=== PATIENT | male | born 1970 | race Caucasian/White ===

== ENCOUNTER 2018-04-04 12:39 | Outpatient (CLI) | payer OTHER | END 2018-04-04 12:44 | disposition home or self-care (01) | LOC: LAB 12:39 | DX: R97.20 Elevated prostate specific antigen [PSA] (principal) ==

== ENCOUNTER 2018-05-09 07:16 | Outpatient (CLI) | payer OTHER | END 2018-05-09 07:29 | disposition home or self-care (01) | LOC: SONOGRAMA 07:16 | DX: R97.20 Elevated prostate specific antigen [PSA] (principal) ==

== ENCOUNTER 2019-07-11 19:12 | Outpatient (CLI) | payer OTHER | END 2019-07-11 19:33 | disposition home or self-care (01) | LOC: LAB 19:12 | DX: R97.20 Elevated prostate specific antigen [PSA] (principal) ==

== ENCOUNTER → 2019-09-06 | Outpatient (CLI) | payer OTHER | END | disposition home or self-care (01) | LOC: SONOGRAMA 07:14 → RAD 07:14 | DX: R97.20 Elevated prostate specific antigen [PSA] (principal) ==

== ENCOUNTER 2020-02-25 10:04 | Outpatient (CLI) | payer OTHER | END 2020-02-25 10:09 | disposition home or self-care (01) | LOC: LAB 10:04 | PROVIDERS: ATTEND Urology | DX: R97.20 Elevated prostate specific antigen [PSA] (principal) ==

== ENCOUNTER 2020-03-18 07:07 | Outpatient (CLI) | payer OTHER | END 2020-03-18 09:44 | disposition home or self-care (01) | LOC: SONOGRAMA 07:07 | PROVIDERS: ATTEND Urology | DX: R97.20 Elevated prostate specific antigen [PSA] (principal) ==

== ENCOUNTER 2020-10-19 07:15 | Inpatient (IN) | payer OTHER ==
[~2020-10-19] VITALS: Ht 182.9 cm; Wt 121.6 kg
[2020-10-19] MEDS ORDERED: STELARA90 MG/1 ML (08:55)
[2020-10-19] MEDS ORDERED: VASOTEC10 MG PO (08:55)
== END 2020-10-28 08:58 | disposition home or self-care (01) | DRG 708 ==
LOC: O/R 10-26 05:15 → EDSEX 10-26 05:15 → SURG 10-26 05:15 → O/R 10-26 07:15 → SURG 10-26 13:14
PROVIDERS: ADMIT Urology; ATTEND Urology
PROC: 07BC0ZX Excision of Pelvis Lymphatic, Open Approach, Diagnostic (ICD-10-PCS; 2020-10-26)
PROC: 0VT00ZZ Resection of Prostate, Open Approach (ICD-10-PCS; principal; 2020-10-26 09:30)
DX: C61 Malignant neoplasm of prostate (principal); I10 Essential (primary) hypertension; Z20.822 Contact with and (suspected) exposure to COVID-19

== ENCOUNTER 2024-10-07 10:00 | Outpatient (CLI) | payer OTHER ==
[~2024-10-07 10:00] MED LIST: STELARA90 MG/1 ML; VASOTEC10 MG PO
== END 2024-10-08 13:45 | disposition home or self-care (01) ==
LOC: SONOGRAMA 10:00
PROVIDERS: ATTEND Pathology Anatomic Pathology
DX: E04.2 Nontoxic multinodular goiter (principal); D34 Benign neoplasm of thyroid gland; E07.89 Other specified disorders of thyroid